=== PATIENT | female | born 1995 | race Caucasian/White ===

== ENCOUNTER 2020-06-20 15:49 | Emergency (ER) | payer OTHER, SELFPAY ==
[2020-06-20 16:20] VITALS: BP 169/76; PULSE 79; RESP 20; TEMP 37.2; O2SAT 98
--- NOTE | 2020-06-20 16:56 | ED.GENADULT ---
HPI - General Adult General Chief complaint: Upper Respiratory Infection Stated complaint: cough sore throat Time Seen by Provider: 06/20/20 16:56 Source: patient and RN notes reviewed Mode of arrival: ambulatory Limitations: no limitations History of Present Illness HPI narrative: 25-year-old female presents with complaints of upper respiratory infection symptoms, scratchy throat, cough, intermittent wheezing and headache (not the worst of her life) for the past 10 days. Renee reports consisting symptoms even with treatment. Theraflu, Mucinex DM, and cold and flu cough medicine without relief. History of Asthma and Bronchitis. Dry cough with intermittent clear productive phlegm. No chest congestion. Rhinorrhea and nasal congestion. No exacerbating factors. No high fevers, chills, or sweats. No nausea, vomiting, and abdominal pain. Tolerating po intake well. Denies chest pain, coughing up blood, jaw pain, dental pain, facial pain, foreign body sensation, and rash. The patient reports she have not been diagnosed with COVID-19. The patient reports she is not waiting for the results of a COVID-19 lab test. The patient reports he do not have weakness, myalgia, or fatigue. The patient reports he do not have a worsening cough. Denies chest pain. The patient reports he do not have any loss of smell or taste or diarrhea. Denies recent traveling. Denies concerns for COVID-19 or exposures been home with limited outdoor exposure except for essential household needs, work, and return home. At this time, patient is not suspected of having COVID-19. Some parts of this dictation were generated by voice recognition software and may contain typographical and/or grammatical inaccuracies. Related Data Allergies Allergy/AdvReac Type Severity Reaction Status Date / Time No Known Allergies Allergy Verified 06/20/20 17:01 Review of Systems Review of Systems: Narrative: CONSTITUTIONAL: Denies fever, chills, sweats. EYES: Denies visual changes, redness, discharge. ENT: Complains of rhinorrhea, congestion, scratchy throat. Denies otalgia. CARDIOVASCULAR: Denies chest pain, palpitations, edema. RESPIRATORY: Denies dyspnea. Complains of intermittent wheezing and productive cough with clear phlegm, dry cough. GASTROINTESTINAL: Denies abdominal pain, nausea, vomiting, diarrhea. GENITOURINARY: Denies dysuria, hematuria, abnormal discharge. SKIN: Denies rash or itching. MUSCULOSKELETAL: Denies acute back pain, joint pain, myalgia. NEUROLOGIC: Denies numbness or focal weakness. Complains of intermittent MCINTOSH. PSYCHIATRIC: Denies anxiety or depression. All systems reviewed & are unremarkable except as noted in HPI and below PMFSH Past Medical History Medical History (Updated 06/21/20 @ 00:00 by Alfred Batres) Asthma Surgical History Surgical History (Updated 06/20/20 @ 17:22 by CHERISE Amos) History of adenoidectomy History of tonsillectomy Family History Family History (Updated 06/20/20 @ 17:23 by CHERISE Amos) Father , Accidental overdose Overdose Mother Alive and well Social History Social History (Updated 06/20/20 @ 17:24 by CHERISE Amos) Smoking status: Never smoker Tobacco type: cigarettes Second hand tobacco smoke exposure: No Alcohol intake: current Substance use: former Substance use type: marijuana Living arrangements: with family Occupation/Education: occupation Gender identity (if verbalized by the patient): Female Comments At time of signature, agree with nurse past medical, surgical, social, and family history. There is relevant patient's past medical history pertinent to the presenting complaint, no relevant family history pertinent to the presenting complaint. Exam Narrative: Exam Narrative: GENERAL: This is a well-nourished, well-developed patient, in no apparent distress. Talks in full sentences and ambulates with steady gait without dy
[2020-06-20 17:03] VITALS: BP 169/76; PULSE 79; RESP 20; TEMP 37.2; O2SAT 98
[2020-06-20 17:20] VITALS: BP 140/70
== END 2020-06-20 17:20 | disposition home or self-care (01) ==
PROVIDERS: Emergency Provider Nurse Practitioner Family
DX: J45.901 Unspecified asthma with (acute) exacerbation (principal); Z20.822 Contact with and (suspected) exposure to COVID-19
CPT/HCPCS: 87081; 87426; 87804; 87880; 99213; C9803; G0463

== ENCOUNTER 2021-05-18 18:27 | Emergency (ER) | payer OTHER, SELFPAY ==
[2021-05-18 18:40] VITALS: BP 143/88; PULSE 102; RESP 18; TEMP 37.3; O2SAT 100
--- NOTE | 2021-05-18 18:54 | ED.EAR ---
HPI - Ear Problem General Chief complaint: Ear Stated complaint: OTHER Source: patient and RN notes reviewed Mode of arrival: ambulatory History of Present Illness HPI Narrative: This is a 26-year-old female who presented to urgent care with complaints of bloody drainage from her right ear that started today. Patient notes that she has had multiple other problems due to COVID. Patient notes that she has not had any ear pain. The patient denies SOB, CP, palpitation, extremity numbness, decreased hearing, foreign body lightheadedness, dizziness, constipation, diarrhea, chills, or fever. Location: right ear Related Data Home Medications Medication Instructions Recorded Confirmed dextroamphetamine-amphetamine 15 mg PO DAILY 05/18/21 05/18/21 paroxetine HCl 20 mg PO DAILY 05/18/21 05/18/21 Allergies Allergy/AdvReac Type Severity Reaction Status Date / Time No Known Allergies Allergy Verified 05/18/21 18:33 Review of Systems Review of Systems: A 14 organ system Review of Systems was performed and pertinent positives included in the HPI, otherwise remaining ROS is negative. [facility] Past Medical History Medical History Asthma Surgical History Surgical History History of adenoidectomy History of tonsillectomy Family History Family History Father , Accidental overdose Overdose Mother Alive and well Social History Social History Smoking status: Never smoker Tobacco type: cigarettes Second hand tobacco smoke exposure: No Alcohol intake: current Substance use: former Substance use type: marijuana Gender identity (if verbalized by the patient): Female Exam Narrative: GENERAL: This is a well-nourished, well-developed patient, in no apparent distress. HEAD: normocephalic, atraumatic. EYES: PERRL. Sclera clear/white. Vision is grossly intact. EARS: External ears normal, auditory canals clear and with bloody drainage, TMs normal with perforation. Hearing grossly intact. NOSE: External nose normal with no obvious nasal discharge, nares without redness, no rhinorrhea. THROAT: Mucous membranes moist, posterior pharynx clear. NECK: Neck supple, non-tender without lymphadenopathy, masses or thyromegaly. CARDIOVASCULAR: Regular rate and rhythm without murmurs, gallops, or rubs. RESPIRATORY: Clear to auscultation. Breath sounds equal bilaterally. No wheezes, rales, or rhonchi. GASTROINTESTINAL: Abdomen soft, non-tender, nondistended. Bowel sounds are active. No hepato-splenomegaly, or palpable masses. No guarding. SKIN: warm, intact with no suspicious lesions or rash, good texture and turgor. NEURO: awake, alert, and oriented to person, place and time. There were no obvious focal neurologic abnormalities. Steady gait EXTREMITIES: Normal range of motion. No edema. No calf tenderness. Negative Homans sign bilaterally. BACK: Nontender without deformity or crepitance. No flank tenderness. Course Course Emergency Course: Patient will be treated for otitis media with Augmentin Level of Care: Express Care Visit Vital Signs Vital signs: Vital Signs Temperature 99.2 F 05/18/21 18:40 Pulse Rate 102 H 05/18/21 18:40 Respiratory Rate 18 05/18/21 18:40 Blood Pressure 143/88 H 05/18/21 18:40 Pulse Oximetry 100 05/18/21 18:40 Temperature 99.2 F 05/18/21 18:40 Pulse Rate 102 H 05/18/21 18:40 Respiratory Rate 18 05/18/21 18:40 Blood Pressure 143/88 H 05/18/21 18:40 Pulse Oximetry 100 05/18/21 18:40 Medical Decision Making Differential Diagnosis Differential Diagnosis: Otitis media versus otitis externa versus foreign object Vital Signs Vital Signs: Vital Signs Temperature 99.2 F 05/18/21 18:40 Pulse Rate 102 H 05/18/21 18:40 Respiratory
== END 2021-05-18 18:54 | disposition home or self-care (01) ==
PROVIDERS: Emergency Provider Nurse Practitioner
DX: H65.01 Acute serous otitis media, right ear (principal); J45.909 Unspecified asthma, uncomplicated
CPT/HCPCS: 99213; G0463

== ENCOUNTER 2021-07-17 18:02 | Emergency (ER) | payer OTHER, SELFPAY ==
--- NOTE | 2021-07-17 18:51 | ED.URI ---
HPI - URI/Sore Throat General Chief Complaint: Upper Respiratory Infection Stated Complaint: Sore Throat,Cough,Congestion,Headache Time Seen by Provider: 07/17/21 18:50 Source: patient, RN notes reviewed and old records reviewed Mode of arrival: ambulatory Limitations: no limitations History of Present Illness HPI Narrative: 26-year-old female who presents to [facility] with complaints of 1 week duration of cough, congestion, sore throat, frontal and temporal headache, ears popping,and sinus pressure. She reports that she has not had a fever that she knows of she didn't have a working thermometer but has had some chills or sweats. Patient reports that she has taken DayQuil and Sudafed for her symptoms. Patient states that her headache is pounding rates it 10/06. Patient reports that she was nauseated this morning and she had some loose stools, denies any vomiting. Patient states that she had COVID in March of 2021. MD elicited complaint: cough and sore throat Pertinent past history: asthma Related Data Home Medications Medication Instructions Recorded Confirmed dextroamphetamine-amphetamine 15 mg PO DAILY 05/18/21 07/17/21 paroxetine HCl 20 mg PO DAILY 05/18/21 07/17/21 Allergies Allergy/AdvReac Type Severity Reaction Status Date / Time No Known Allergies Allergy Verified 07/17/21 18:35 Review of Systems Review of Systems: CONSTITUTIONAL: Denies known fever, positive for chills, or sweats. EYES: Denies visual changes, redness, or discharge. ENT: Positive for rhinorrhea, congestion, sinus pressure,sore throat, no otalgia. CARDIOVASCULAR: Denies chest pain, palpitations, or edema. RESPIRATORY: Positive for cough denies dyspnea. GASTROINTESTINAL: Denies abdominal pain, nausea, vomiting, or diarrhea. GENITOURINARY: Denies dysuria or hematuria. SKIN: Denies rash or itching. MUSCULOSKELETAL: Denies back pain, joint pain, or myalgia. NEUROLOGIC: Positive for frontal and temporal headache, no numbness, or weakness. PSYCHIATRIC: Positive for anxiety or depression. All systems reviewed & are unremarkable except as noted in HPI and below PMFSH Past Medical History Medical History ADHD (attention deficit hyperactivity disorder) Anxiety and depression Asthma Surgical History Surgical History History of adenoidectomy History of tonsillectomy Family History Family History Father , Accidental overdose Overdose Mother Alive and well Social History Social History Smoking status: Never smoker Tobacco type: cigarettes Second hand tobacco smoke exposure: No Alcohol intake: current Substance use: former Substance use type: marijuana Gender identity (if verbalized by the patient): Female Comments At time of signature, agree with nursing past medical, surgical, social and family history. There is no relevant family history pertinent to the presenting complaint Exam Narrative: GENERAL: Well-appearing, well-nourished, and in no acute distress. HEAD: Normocephalic, atraumatic. EYES: PERRLA and EOMI. ENT: Nares red with greenish tinged rhinorrhea no epistaxis. Mucous membranes moist.TM's normal with good light reflex, throat red with no lesions or exudates, no tonsils present NECK: Supple. no lymphadenopathy CHEST: Clear to auscultation. No respiratory distress. SAO2 100% on room air HEART: Regular rate and rhythm. No murmur heard. Normal peripheral pulses. ABDOMEN: Soft, nontender, nondistended, normal active bowel sounds. EXTREMITIES: Normal range of motion. No edema. SKIN: Warm, dry, no rash. NEURO: No focal deficits. Alert and oriented x3. Course Course Level of Care: Express Care Visit MDM - URI/Sore Throat Differential Diagnosis Differential diagnosis: Likely upper respira
[2021-07-17 19:06] VITALS: BP 142/69; PULSE 84; RESP 18; TEMP 36.6; O2SAT 100
== END 2021-07-17 19:14 | disposition home or self-care (01) ==
PROVIDERS: Emergency Provider Registered Nurse
DX: J06.9 Acute upper respiratory infection, unspecified (principal); R05.9 Cough, unspecified; J45.909 Unspecified asthma, uncomplicated; F90.9 Attention-deficit hyperactivity disorder, unspecified type; F41.9 Anxiety disorder, unspecified; F32.A Depression, unspecified; Z86.16 Personal history of COVID-19
CPT/HCPCS: 87081; 87880; 99213; G0463

== ENCOUNTER 2023-01-07 14:09 | Emergency (ER) | payer OTHER, SELFPAY ==
--- NOTE | 2023-01-07 14:13 | ED.URI ---
HPI - URI/Sore Throat General Chief Complaint: Upper Respiratory Infection Stated Complaint: cough Time Seen by Provider: 01/07/23 14:24 Source: patient, RN notes reviewed and old records reviewed Mode of arrival: ambulatory Limitations: no limitations History of Present Illness HPI Narrative: 27-year-old female presents to the [facility] with complaints of cough for 2 weeks. Related Data Home Medications Medication Instructions Recorded Confirmed dextroamphetamine-amphetamine 15 15 mg PO DAILY 05/18/21 01/07/23 mg tablet lamotrigine 200 mg tablet 100 mg PO DAILY 01/07/23 01/07/23 metformin 500 mg tablet 500 mg PO BID 01/07/23 01/07/23 thyroid (pork) 60 mg tablet (TOURIST GUIDE 60 mg PO DAILY 01/07/23 01/07/23 Thyroid) Allergies Allergy/AdvReac Type Severity Reaction Status Date / Time No Known Allergies Allergy Verified 07/18/21 15:34 Review of Systems Review of Systems: All systems reviewed & are unremarkable except as noted in HPI and below Constitutional: Constitutional: Reports no additional constitutional complaints Eyes: Eyes: Reports no additional eye complaints ENT: Reports system reviewed and no additional complaints, except as documented Cardiovascular: Cardiovascular: Reports no additional cardiovascular complaints, Denies chest pain and Denies dyspnea Respiratory: Respiratory: Reports as per HPI, Denies chest congestion, Reports cough and Denies dyspnea Gastrointestinal: Gastrointestinal: Reports no additional gastrointestinal complaints, Denies abdominal pain, Denies nausea and Denies vomiting Musculoskeletal: Musculoskeletal: Reports no additional musculoskeletal complaints Integumentary/Breasts: Skin/Breast: Reports system reviewed and no additional complaints, except as docu Neurologic: Reports system reviewed and no additional complaints, except as documented Psychiatric: Psychiatric: Reports no additional psychiatric complaints Allergic/Immunologic: Allergic/Immunologic: Reports no additional allergic/immunologic complaints [facility] Past Medical History Medical History ADHD (attention deficit hyperactivity disorder) Anxiety and depression Asthma Surgical History Surgical History History of adenoidectomy History of tonsillectomy Family History Family History Father , Accidental overdose Overdose Mother Alive and well Social History Social History Smoking status: Never smoker Tobacco type: cigarettes Second hand tobacco smoke exposure: No Alcohol intake: current Substance use: former Substance use type: marijuana Living arrangements: with family Occupation/Education: occupation Gender identity (if verbalized by the patient): Female Comments At the time of my signature, I reviewed and agree with the nursing past medical, surgical, social, and family history. There is no relevant family history pertinent to the patient complaint. Exam Const: General: cooperative, healthy appearing, comfortable, no acute distress, well developed, alert and well nourished Nutritional Appearance: well nourished Orientation/consciousness: patient oriented x3 Limitations: no limitations HENMT: Head: normal to inspection Ears: hearing grossly normal bilaterally, external ears normal, TM's normal bilaterally, EAC's normal and mastoids normal Face/Nose/Sinus: Normal external nose present, Normal nares present, Normal nasal mucous membranes and turbinates present, normal facial exam and face symmetric Face and sinus: normal facial exam and face symmetric Mouth: Yes Normal oral and palatal mucosa present, Yes lip normal and Yes moist mucous membranes Throat: posterior oropharynx normal and uvula midline Eyes: General: appearance normal, both eyes and all re
[2023-01-07 14:21] VITALS: BP 152/74; PULSE 67; RESP 16; TEMP 36.4; O2SAT 100
== END 2023-01-07 14:40 | disposition home or self-care (01) ==
PROVIDERS: Emergency Provider Nurse Practitioner
DX: J40 Bronchitis, not specified as acute or chronic (principal); F90.9 Attention-deficit hyperactivity disorder, unspecified type; F32.A Depression, unspecified; J45.909 Unspecified asthma, uncomplicated
CPT/HCPCS: 99213; G0463